=== PATIENT | female | born 1995 | race Caucasian/White ===

== ENCOUNTER 2019-08-31 21:26 | Emergency (ER) | payer OTHER ==
[~2019-08-31] VITALS: Ht 175.3 cm; Wt 85.0 kg
[2019-08-31 23:33] LABS: MUCOUS Present /lpf; PH 5 (5-8); SQUAMOUS EPITHELIAL 0-2 /hpf; URINE APPEARANCE Clear; URINE BACTERIA Occasional /hpf; URINE BILIRUBIN Negative (NEGATIVE); URINE BLOOD Negative (NEGATIVE); URINE COLOR Yellow; URINE GLUCOSE Negative (NEGATIVE); URINE KETONE Negative (NEGATIVE); URINE LEUKOCYTE ESTERASE Negative (NEGATIVE); URINE NITRATE Negative (NEGATIVE); URINE PROTEIN(semi-quant) Negative (NEGATIVE); URINE RBC 0-2 /hpf; URINE UROBILINOGEN Negative (NEGATIVE); URINE WBC 0-2 /hpf
[2019-08-31 23:36] LABS: COLLECTION METHOD CLEAN CATCH
[2019-08-31] MEDS ORDERED: ZOFRAN 4MG T4 MG/TAB PO (23:52)
[2019-08-31] MEDS ORDERED: DULCOLAX STOOL100 MG PO (23:59)
[2019-09-01 00:12] VITALS: BP 112/72; PULSE 86; TEMP 98.9
== END 2019-09-01 00:17 | disposition home or self-care (01) ==
LOC: COL.ER 21:26
PROVIDERS: Emergency Medicine
DX: G89.18 Other acute postprocedural pain (principal); M54.5 Low back pain; Z98.890 Other specified postprocedural states; Z87.891 Personal history of nicotine dependence
CPT/HCPCS: J1885; J2270; J2405; J7030

== ENCOUNTER 2021-08-25 17:05 | Emergency (ER) | payer OTHER ==
[~2021-08-25] VITALS: Ht 177.8 cm; Wt 86.4 kg
[~2021-08-25 17:05] MED LIST: DULCOLAX STOOL100 MG PO; ZOFRAN 4MG T4 MG/TAB PO
[2021-08-25 17:20] VITALS: TEMP 98.1
[2021-08-25 19:21] VITALS: BP 140/80; PULSE 101
== END 2021-08-25 19:21 | disposition home or self-care (01) ==
LOC: COL.ER 17:05
DX: M25.562 Pain in left knee (principal); V43.03XA Car driver injured in collision with pick-up truck in nontraffic accident, initial encounter; Y92.481 Parking lot as the place of occurrence of the external cause; Y99.0 Civilian activity done for income or pay
CPT/HCPCS: 31289; L1830; L1846

== ENCOUNTER 2021-09-05 17:59 | Emergency (ER) | payer OTHER ==
[~2021-09-05] VITALS: Ht 177.8 cm; Wt 83.2 kg
[2021-09-05 18:06] VITALS: TEMP 98.9
[2021-09-05 19:03] LABS: BASO % 0.1 % (0.0-2.0); EOS # 0.1 K/mm3 (0.0-0.7); EOS % 1.7 % (0.0-4.0); GRAN # 4.6 K/mm3 (1.4-6.5); GRAN % 58.9 % (42.2-75.2); HEMATOCRIT 40.5 % (37.0-47.0); HEMOGLOBIN 13.9 g/dl (12.5-16.0); LYMPH # 2.4 K/mm3 (1.2-3.4); LYMPH % 30.6 % (20.0-51.0); MEAN CELL VOLUME 82 fl (80.0-100.0); MEAN CORPUSCULAR HEMOGLOBIN 28 pg (27-31); MEAN CORPUSCULAR HGB CONC 34 g/dl (33.0-37.0); MEAN PLATELET VOLUME 10.4 fl (7.4-10.4); MONO # 0.7 K/mm3 (0.1-0.6); MONO % 8.4 % (1.7-9.3); PLATELET COUNT 261 K/mm3 (130-400); RED BLOOD COUNT 4.97 M/mm3 (4.10-5.30); REDCELL DISTRIBUTION WIDTH-CV 11.6 % (11.5-14.5)
[2021-09-05 19:34] LABS: ALANINE AMINOTRANSFERASE 31 U/L (0-55); ALBUMIN 4.2 gm/dL (3.5-5.0); ALKALINE PHOSPHATASE 147 U/L (40-150); ANION GAP 12 mmol/L (7-16); AST,SGOT 29 U/L (5-34); BILIRUBIN,TOTAL 0.7 mg/dL (0.2-1.2); BLOOD UREA NITROGEN 12 mg/dL (7-19); CALCIUM 10.3 mg/dL (8.4-10.2); CARBON DIOXIDE 21 mmol/L (22-29); CHLORIDE 106 mmol/L (98-107); CREATININE, serum 0.65 mg/dL (0.57-1.11); GLUCOSE 100 mg/dL (70-99); POTASSIUM 4.4 mmol/L (3.5-4.5); SODIUM 139 mmol/L (136-145); TOTAL PROTEIN 7.3 gm/dL (6.2-8.1)
[2021-09-05 19:41] LABS: TROPONIN-I < 0.010 ng/mL (0.00-0.033)
[2021-09-05 20:37] LABS: COLLECTION METHOD CLEAN CATCH
[2021-09-05 20:47] LABS: MUCOUS Present (NOT PRESENT); PH 5 (5-8); SQUAMOUS EPITHELIAL 0-2 /hpf (0-10); URINE APPEARANCE Hazy (CLEAR/HAZY); URINE BACTERIA None Seen /hpf (NONE SEEN); URINE BILIRUBIN Negative (NEGATIVE); URINE BLOOD Negative (NEGATIVE); URINE COLOR Yellow (YELLOW); URINE GLUCOSE Negative (NEGATIVE); URINE KETONE Trace (NEGATIVE); URINE LEUKOCYTE ESTERASE Negative (NEGATIVE); URINE NITRATE Negative (NEGATIVE); URINE PROTEIN(semi-quant) Negative (NEGATIVE); URINE UROBILINOGEN Negative (NEGATIVE)
[2021-09-05 21:23] VITALS: BP 126/78
[2021-09-05 21:51] VITALS: PULSE 102
[2021-09-06] MEDS ORDERED: TAPAZOLE5 MG PO (15:19)
[2021-09-06] MEDS ORDERED: TENORMIN 2525 MG/TAB PO (15:19)
== END 2021-09-05 21:52 | disposition other institution (70) ==
LOC: COL.ER 17:59
PROVIDERS: Physician Assistant
DX: E05.90 Thyrotoxicosis, unspecified without thyrotoxic crisis or storm (principal); R10.13 Epigastric pain; F17.200 Nicotine dependence, unspecified, uncomplicated
CPT/HCPCS: J1800; J2405; J7030

== ENCOUNTER 2021-09-06 13:18 | Emergency (ER) | payer OTHER ==
[~2021-09-06] VITALS: Ht 177.8 cm; Wt 83.2 kg
[2021-09-06 13:52] VITALS: TEMP 98.7
[2021-09-06 14:26] LABS: BASO % 0.2 % (0.0-2.0); EOS # 0.1 K/mm3 (0.0-0.7); EOS % 1.8 % (0.0-4.0); GRAN # 3.3 K/mm3 (1.4-6.5); GRAN % 53.1 % (42.2-75.2); HEMATOCRIT 37.5 % (37.0-47.0); HEMOGLOBIN 12.6 g/dl (12.5-16.0); LYMPH # 2.1 K/mm3 (1.2-3.4); MEAN CELL VOLUME 83 fl (80.0-100.0); MEAN CORPUSCULAR HEMOGLOBIN 28 pg (27-31); MEAN CORPUSCULAR HGB CONC 34 g/dl (33.0-37.0); MEAN PLATELET VOLUME 10.5 fl (7.4-10.4); MONO # 0.7 K/mm3 (0.1-0.6); MONO % 10.7 % (1.7-9.3); PLATELET COUNT 233 K/mm3 (130-400); RED BLOOD COUNT 4.53 M/mm3 (4.10-5.30); REDCELL DISTRIBUTION WIDTH-CV 11.5 % (11.5-14.5)
[2021-09-06 14:45] LABS: ALBUMIN 3.7 gm/dL (3.5-5.0); BILIRUBIN,TOTAL 0.6 mg/dL (0.2-1.2); CALCIUM 9.5 mg/dL (8.4-10.2); CREATININE, serum 0.67 mg/dL (0.57-1.11); POTASSIUM 3.8 mmol/L (3.5-4.5); TOTAL PROTEIN 6.8 gm/dL (6.2-8.1)
[2021-09-06] MEDS ORDERED: TENORMIN 2525 MG/TAB PO (15:19)
[2021-09-06] MEDS ORDERED: TAPAZOLE5 MG PO (15:19)
[2021-09-06 15:35] VITALS: BP 125/61; PULSE 105
== END 2021-09-06 15:35 | disposition home or self-care (01) ==
LOC: COL.ER 13:18
PROVIDERS: Emergency Medicine
DX: E05.90 Thyrotoxicosis, unspecified without thyrotoxic crisis or storm (principal); F17.200 Nicotine dependence, unspecified, uncomplicated
CPT/HCPCS: J7120; Q9967